=== PATIENT | female | born 1975 | race Caucasian/White ===

== ENCOUNTER 2022-12-27 10:13 | Outpatient (CLI) | payer OTHER, SELFPAY ==
--- NOTE | ~2022-12-27 | MM_ITS ---
EXAMINATION: MM screening facundo BI w shruthi HISTORY: Screening TECHNIQUE: Craniocaudal and mediolateral oblique 3-D tomosynthesis images were obtained and synthetic 2-D images were generated. CAD analysis was submitted and interpreted. COMPARISON: No prior mammogram is available for comparison at this institution. BREAST PARENCHYMAL COMPOSITION: The breasts are heterogeneously dense, which may obscure small masses . FINDINGS: There are focal asymmetries in the lower central right breast which are obscured by fibrogl andular tissue. There is a cluster of indeterminate left breast calcifications in the upper outer feng drant, middle third. IMPRESSION: 1. Focal right breast asymmetries and focal clustered indeterminate left breast calcifications. 2. Additional mammographic views and possible breast ultrasound are recommended. BI-RADS Category 0: Incomplete: Needs additional imaging evaluation. Reviewed, dictated and finalized at location [facility]. IMPRESSION: 1. Focal right breast asymmetries and focal clustered indeterminate left breast calcifications. 2. Additional mammographic views and possible breast ultrasound are recommended . BI-RADS Category 0: Incomplete: Needs additional imaging evaluation.
== END 2022-12-27 10:14 | disposition home or self-care (01) ==
PROVIDERS: PCP Nurse Practitioner Family; Visit Provider Nurse Practitioner Family
DX: Z12.31 Encounter for screening mammogram for malignant neoplasm of breast (principal); R92.8 Other abnormal and inconclusive findings on diagnostic imaging of breast
CPT/HCPCS: 77063; 77067

== ENCOUNTER 2023-02-28 11:56 | Outpatient (CLI) | payer OTHER, SELFPAY ==
--- NOTE | ~2023-02-28 | MMUS_ITS ---
EXAMINATION: MM diagnostic facundo BI w shruthi, US breast BI complete HISTORY: Follow-up focal breast asymmetries and left breast calcifications TECHNIQUE: Additional 3-D tomosynthesis images of the breasts were performed and synthetic 2-D images were generated. CAD analysis was submitted and interpreted. High resolution complete bilateral breas t ultrasound was performed. COMPARISON: 12/27/2022 BREAST PARENCHYMAL COMPOSITION: The breasts are heterogeneously dense, which may obscure small masses FINDINGS: MAMMOGRAPHIC FINDINGS: Focal asymmetry lower inner quadrant of the right breast is less apparent with spot compression views . No suspicious calcifications or architectural distortion. Clustered indeterminate calcifications up per outer quadrant of the left breast are suspicious. ULTRASOUND: Complete bilateral US of all 4 quadrants of the breasts and retroareolar region was reviewed. Normal heterogeneous echotexture without focal solid or cystic mass. IMPRESSION: 1. Clustered indeterminate left breast calcifications, upper outer quadrant, middle third. Stereotact ic left breast biopsy recommended. BI-RADS Category 4. 2. Probable benign focal asymmetry lower inner quadrant of the right breast, middle third. No sonogra phic correlate. Six-month follow-up diagnostic right mammogram and possible additional ultrasound rec ommended. BI-RADS Category 3. Reviewed, dictated and finalized at location [facility]. IMPRESSION: 1. Clustered indeterminate left breast calcifications, upper outer quadrant, mi ddle third. Stereotactic left breast biopsy recommended. BI-RADS Category 4. 2. Probable benign focal asymmetry lower inner quadrant of the right breast, mi ddle third. No sonographic correlate. Six-month follow-up diagnostic right mamm ogram and possible additional ultrasound recommended. BI-RADS Category 3.
== END 2023-02-28 11:57 | disposition home or self-care (01) ==
LOC: ANHIMG 12:01
PROVIDERS: PCP Nurse Practitioner Family; Visit Provider Nurse Practitioner Family
DX: R92.8 Other abnormal and inconclusive findings on diagnostic imaging of breast (principal)
CPT/HCPCS: 76641; 77062; 77066; G0279

== ENCOUNTER 2023-03-18 13:14 | Outpatient (CLI) | payer OTHER, SELFPAY ==
--- NOTE | ~2023-03-18 | MM_ITS ---
EXAMINATION: MM stereotactic bx LT, MM post biopsy diagnostic LT, MM stereotactic specimen LT, Specim en Radiograph, Tissue Marker Clip Placement, Unilateral Mammogram DATE: 03/18/2023 INDICATION: Abnormal mammogram: Clustered indeterminate left breast microcalcifications, upper outer quadrant. TECHNIQUE AND FINDINGS: The risks and potential benefits of the procedure were discussed with the patient and written informe d consent was obtained. Timeout procedure was performed. The patient was placed in the prone position on the dedicated stereotactic table with the left breast in craniocaudal compression, and the area o f interest was localized and targeted utilizing digital imaging with stereotaxis. After sterile preparation of the skin, 1% lidocaine was utilized for local anesthesia at the skin pun cture site and 1% lidocaine with epinephrine was utilized for deeper local anesthesia/is about the bi opsy site. A 9G Pad[place] vacuum assisted biopsy needle was advanced to the level of the calcification o f interest from a cephalad approach utilizing stereotactic guidance and a total of 12 tissue core bio psies were obtained. A specimen radiograph demonstrates that the calcifications of interest are included within the tissue cores. A tissue marker clip was then placed at the biopsy site. A digital mammographic exposure co nfirmed the successful deployment of the biopsy marker. The needle was removed and hemostasis was ac hieved. A sterile bandage was applied. The patient tolerated the procedure well and there is no piyush dence of significant immediate complication. The patient was given verbal as well as written postpro cedural instructions prior to discharge from the department. Tissue cores were submitted to surgical pathology for histologic analysis. A 2-view left unilateral digital mammogram was obtained post procedure, demonstrating the tissue charlotte er clip in expected position. IMPRESSION: Successful stereotactic biopsy of left upper outer quadrant grouped microcalcifications, followed by tissue marker clip placement. Please refer to pathology report for histologic analysis. Reviewed, dictated and finalized at [facility]. Reviewed, dictated and finalized at location [facility]. IMPRESSION: Successful stereotactic biopsy of left upper outer quadrant grouped microcalci fications, followed by tissue marker clip placement. Please refer to pathology report for histologic analysis. IMPRESSION: Successful stereotactic biopsy of left upper outer quadrant grouped microcalci fications, followed by tissue marker clip placement. Please refer to pathology report for histologic analysis.
== END 2023-03-18 13:15 | disposition home or self-care (01) ==
PROVIDERS: PCP Nurse Practitioner Family; Visit Provider Nurse Practitioner Family
DX: R92.8 Other abnormal and inconclusive findings on diagnostic imaging of breast (principal); D05.11 Intraductal carcinoma in situ of right breast
CPT/HCPCS: 19081; 77065; 88305; 88342